=== PATIENT | female | born 1950 | race Hispanic/Latino ===

== ENCOUNTER 2017-11-19 09:23 | Observation (INO) | payer MEDICARE ==
[2017-11-19 10:40] LABS: Hematocrit 46.1 % (30.3-42.9); Hemoglobin 15.5 gm/dl (10.1-14.3)
[2017-11-19] MEDS ORDERED: DILAUDID IV PRN ×2 (10:54→15:39)
[2017-11-19] MEDS ORDERED: ZOFRAN IV PRN ×2 (10:54→18:13)
--- NOTE | 2017-11-19 10:55 | Anesthesia Day of Surgery ---
Anesthesia Day of Surgery - Day of Surgery Patient Examined: Yes Patient H&P Reviewed: Yes Patient is NPO: Yes
--- NOTE | 2017-11-19 10:57 | Anesthesia Consultation ---
Anesthesia Consult and Med Hx Date of service: 11/19/17 - Airway Anesthetic Teeth Evaluation: Good ROM Head & Neck: Adequate Mental/Hyoid Distance: Adequate Mallampati Class: Class II Intubation Access Assessment: Probably Good - Pulmonary Exam CTA: Yes - Cardiac Exam Cardiac Exam: RRR - Pre-Operative Health Status ASA Pre-Surgery Classification: ASA2 Proposed Anesthetic Plan: General - Pulmonary Hx Smoking: Yes (former smoker x 15 yrs, quit 20 yrs ago) Hx Asthma: No COPD: No Hx Sleep Apnea: No - Cardiovascular System Hx Hypertension: Yes (x 3 yrs) - Central Nervous System Hx Back Pain: Yes (arthritis in neck and back, adequate ROM in neck) Hx Psychiatric Problems: Yes (anxiety) - Gastrointestinal Hx Gastroesophageal Reflux Disease: Yes - Endocrine Hx Renal Disease: No Hx Thyroid Disease: Yes (not on meds) - Hematic Hx Anemia: No - Other Systems Hx Cancer: No Hx Obesity: Yes - Additional Comments Anesthesia Medical History Comments: Has had two surgeries on face with no complications. Denies PONV
[2017-11-19] MEDS ORDERED: VERSED IV NR (11:00)
[2017-11-19] MEDS ORDERED: NACL 0.9% 1000 ML 1,000 ML IV SCH (11:00)
[2017-11-19] MEDS ORDERED: ANCEF/STERILE WATER 2 GM/20 ML 2 GM/20 ML SYRINGE IV NR (11:00)
[2017-11-19] MEDS ORDERED: PEPCID PO NR (11:00)
[2017-11-19 11:19] LABS: BUN/Creatinine Ratio 20; Blood Urea Nitrogen 14 mg/dL (7-17); Calcium 9.5 mg/dL (8.4-10.2); Hemolysis Index 4
--- NOTE | 2017-11-19 12:19 | History and Physical Report ---
History of Present Illness Date of examination: 11/19/17 Date of admission: 11/19/2017 Chief complaint: Postmenopausal bleeding History of present illness: Patient is a 66-year-old female who presents with complaint of postmenopausal bleeding and pelvic pain intermittently for the past 6 months. An ultrasound revealed thickened endometrium as well as a 3 cm fibroid in the posterior portion of the uterus. 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 She has never had intervention have removed however she is wishing to have it removed today Past History Past Medical History: hypertension, hyperlipidemia Social history: , lives with family Medications and Allergies Allergies Allergy/AdvReac Type Severity Reaction Status Date / Time codeine Allergy severe N&V Verified 11/12/17 12:53 Home Medications Medication Instructions Recorded Confirmed Last Taken Type Atorvastatin Calcium [Atorvastatin 20 mg PO DAILY 11/19/17 11/19/17 11/18/17 History Calcium] Furosemide [Lasix TAB] 20 mg PO DAILY 11/19/17 11/19/17 11/18/17 History Lisinopril [Zestril TAB] 10 mg PO DAILY 11/19/17 11/19/17 11/19/17 History Potassium Chloride [Potassium 10 mcg PO DAILY 11/19/17 11/19/17 11/18/17 History Chloride] traMADol [Ultram 50 MG tab] 50 mg PO DAILY 11/19/17 11/19/17 11/17/17 History Active Meds: Active Medications Famotidine (Pepcid) 20 mg PO PREOP NR Stop: 11/19/17 13:00 Last Admin: 11/19/17 11:20 Dose: 20 mg Hydromorphone HCl (Dilaudid) 0.5 mg IV Q10MIN PRN PRN Reason: Pain , Severe (7-10) Stop: 11/19/17 13:00 Cefazolin Sodium (Ancef/Sterile Water 2 Gm/20 Ml) 2 gm in 20 mls @ 80 mls/hr IV PREOP NR PRN Reason: Protocol Stop: 11/19/17 13:00 Sodium Chloride (Nacl 0.9% 1000 Ml) 1,000 mls @ 75 mls/hr IV DIRECT KAYA Last Admin: 11/19/17 11:25 Dose: 75 mls/hr Midazolam HCl (Versed) 1 mg IV PREOP NR Stop: 11/19/17 23:59 Last Admin: 11/19/17 11:35 Dose: 1 mg Review of Systems All systems: negative - Constitutional fatigue - Genitourinary Genitourinary: pelvic pain, abnormal vaginal bleeding, vaginal dryness Menstruation: postmenopausal Exam Vital Signs Temp Pulse Resp BP Pulse Ox 97.6 F 66 18 144/65 97 11/19/17 10:25 11/19/17 10:25 11/19/17 10:25 11/19/17 10:25 11/19/17 10:25 - General physical appearance Positive: well developed, well nourished, no distress - Eyes Positive: PERRL, normal occular movement - ENT Positive: normal pinna, normal nares, normal mucosa, no hearing loss, no congestion - Neck Positive: no masses, no bruits, trachea midline, no venous distension - Respiratory Positive: normal expansion, normal respiratory effort, clear to auscultation - Cardiovascular Rhythm: regular Heart Sounds: Present: S1 & S2. Absent: rub, click - Extremities Extremities: no ischemia, pulses symmetrical, No edema Extremity abnormal: deformity - Breasts Breasts: deferred - Abdomen Abdomen: Present: soft, bowel sounds normal - Genitourinary Female Genitourinary: other (enlarged uterus) Results - Labs 11/19/17 10:25 11/19/17 10:25 Abnormal lab results 11/19/17 11/19/17 Range/Units 10:25 10:25 Hgb 15.5 H (10.1-14.3) gm/dl Hct 46.1 H (30.3-42.9) % Glucose 107 H (65-100) mg/dL Diabetes panel 11/19/17 11/19/17 Range/Units 10:25 10:25 Sodium 143 (137-145) mmol/L Potassium 4.4 4.4 (3.6-5.0) mmol/L Chloride 103.6 (98-107) mmol/L Carbon Dioxide 24 (22-30) mmol/L BUN 14 (7-17) mg/dL Creatinine 0.7 (0.7-1.2) mg/dL Glucose 107 H (65-100) mg/dL Calcium 9.5 (8.4-10.2) mg/dL Calcium panel 11/19/17 Range/Units 10:25 Calcium 9.5 (8.4-10.2) mg/dL Pituitary panel 11/19/17 11/19/17 Range/Units 10:25 10:25 Sodium 143 (137-145) mmol/L Potassium 4.4 4.4 (3.6-5.0) mmol/L Chloride 103.6 (98-107) mmol/L Carbon Dioxide 24 (22-30) mmol/L BUN 14 (7-17) mg/dL Creatinine 0.7 (0.7-1.2) mg/dL Glucose 107 H (65-100) mg/dL Calcium 9.5 (8.4-10.2) mg/dL Adrenal panel 11/19/17 11/19/17 Range/Units 10:25 10:25 Sodium 143 (137-145) mmol/L Potassium 4.4 4.4 (3.6-5.0) mmol/L Chloride 103.6 (98-107) mmol/L Carbon Dioxide 24 (22-30) mmol/L BUN 14 (7-17) mg/dL Creatinine 0.7 (0.7-1.2) mg/dL Glucose 107 H (65-100) mg/dL Calcium 9.5 (8.4-10.2) mg/dL Assessment and Plan Patient here for definitive therapy for pmb and fibroids. Patient is requesting to have her ovaries remain, however I explained to patient that if there are any obvious abnormalities, I would remove then due to age and increased risk for other issues. Patient understands. Consents signed and placed on chart.
[2017-11-19] MEDS ORDERED: DIPRIVAN 10 MG/ML IV ONE (12:32)
[2017-11-19] MEDS ORDERED: DILAUDID ONE (12:32)
[2017-11-19] MEDS ORDERED: XYLOCAINE MPF 2% ONE (12:33)
[2017-11-19] MEDS ORDERED: ZEMURON IV ONE ×2 (12:34→14:30)
[2017-11-19] MEDS ORDERED: NACL 0.9% IR ONE ×2 (12:42)
[2017-11-19] MEDS ORDERED: MARCAINE 0.25% INFILTRATI ONE ×2 (12:42→12:47)
[2017-11-19] MEDS ORDERED: METHYLENE BLUE ONE (12:48)
[2017-11-19] MEDS ORDERED: LACTATED RINGERS 1,000 ML ONE (13:59)
[2017-11-19] MEDS ORDERED: NEOSTIGMINE ONE (15:14)
[2017-11-19] MEDS ORDERED: TORADOL ONE (15:15)
[2017-11-19] MEDS ORDERED: ROBINUL ONE (15:15)
[2017-11-19] MEDS ORDERED: ZOFRAN ONE (15:15)
--- NOTE | 2017-11-19 15:40 | Post Anesthesia Evaluation ---
- Post Anesthesia Evaluation Patient Participated: Yes Airway Patent: Yes Stable Respiratory Function: Yes Nausea/Vomiting: No Temp > 96.8F: Yes Pain Manageable: Yes Adequeate Hydration: Yes Anesthesia Complications: No
--- NOTE | 2017-11-19 17:06 | Post Operative Note ---
Pre-op diagnosis: Post menopausal bleeding, fibroids Post-op diagnosis: same Findings: enlarged uterus and enlarged multicystic ovaries Procedure: LAVH with BSO Anesthesia: CLAUDY Surgeon: KEVIN COOK Wood Machinist: ADDISON OLIVAS Estimated blood loss: other (200) Pathology: list (uterus tubes and ovaries) Specimen disposition: to lab Condition: stable Disposition: PACU
[2017-11-19] MEDS ORDERED: TYLENOL PO PRN (18:13)
[2017-11-19] MEDS ORDERED: MORPHINE IV PRN (18:13)
[2017-11-19] MEDS ORDERED: PERCOCET 5/325 PO PRN (18:13)
[2017-11-19] MEDS: TORADOL IV SCH (19:07)
[2017-11-19] MEDS: D5LR 1,000 ML IV SCH (19:37)
[2017-11-19] MEDS: COLACE PO SCH (22:35)
[2017-11-20] MEDS: TORADOL IV SCH ×2 (01:51→08:13)
[2017-11-20] MEDS: D5LR 1,000 ML IV SCH (04:23)
[2017-11-20 07:47] LABS: Hematocrit 38.9 % (30.3-42.9); Hemoglobin 12.9 gm/dl (10.1-14.3)
--- NOTE | 2017-11-20 08:10 | Progress Note ---
Assessment and Plan Patient is POD 1 s/p LAVH. Doing well. Patient passing flatus. Patient would like to be discharged on tomorrow Subjective - Subjective Date of service: 11/20/17 Interval history: Patient is a 66-year-old female who presents with complaint of postmenopausal bleeding and pelvic pain intermittently for the past 6 months. An ultrasound revealed thickened endometrium as well as a 3 cm fibroid in the posterior portion of the uterus. 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 She has never had intervention have removed however she is wishing to have it removed today Patient reports: appetite normal, voiding normally, pain well controlled, flatus , ambulating normally Objective - Vital Signs Latest vital signs: Vital Signs Temp Pulse Resp BP BP Pulse Ox 11/20/17 04:30 98.6 F 77 16 132/78 11/20/17 01:51 18 11/19/17 23:30 98.6 F 84 16 144/72 11/19/17 19:45 98.2 F 83 18 142/76 11/19/17 19:37 98 11/19/17 18:00 97.8 F 82 18 130/71 99 11/19/17 17:00 79 13 130/69 98 11/19/17 16:30 73 15 132/66 97 11/19/17 16:15 78 14 126/67 96 11/19/17 16:00 80 14 131/72 93 11/19/17 15:50 76 12 140/73 95 11/19/17 15:45 81 14 142/71 95 11/19/17 15:40 82 11 L 143/70 99 11/19/17 15:35 97.2 F L 88 16 130/72 97 11/19/17 10:25 97.6 F 66 18 144/65 97 Intake and Output 11/19/17 11/20/17 11/20/17 22:59 06:59 14:59 Intake Total 300 1000 Output Total 2600 Balance 300 -1600 Intake: IV 300 1000 D5lr 1,000 ml @ 125 mls/ 1000 hr IV DIRECT KAYA Rx#: [id number] Output: Urine 2600 Indwelling Catheter 2600 Other: Total, Output Amount 900 Voiding Method Indwelling Catheter - Exam Breasts: Present: deferred Cardiovascular: Present: Regular rate, Normal S1, Normal S2 Lungs: Present: Clear to auscultation, Normal air movement Abdomen: Present: normal appearance, soft, normal bowel sounds Extremities: Present: normal Deep Tendon Reflex Grade: Normal +2 Incision: Present: normal, dry, intact - Labs Labs: Abnormal lab results 11/19/17 11/19/17 Range/Units 10:25 10:25 Hgb 15.5 H (10.1-14.3) gm/dl Hct 46.1 H (30.3-42.9) % Glucose 107 H (65-100) mg/dL
--- NOTE | 2017-11-20 08:19 | Discharge Summary ---
Providers - Providers Date of Admission: 11/19/17 16:59 Date of discharge: 11/20/17 Attending physician: KEVIN COOK Primary care physician: ADINA MERRILL Hospitalization Reason for admission: other (post menopausal bleeding) Delivery: other (LAVH) Procedure details: see op report Incision: normal, dry, intact Other procedures: none Discharge diagnosis: other (Post menopausal bleeding) Hospital course: Unremarkable Condition at discharge: Good Disposition: DC-01 TO HOME OR SELFCARE Plan - Discharge Medications Prescriptions: Docusate Sodium [Colace] 100 mg PO BID PRN #60 capsule PRN Reason: Constipation Ibuprofen [Motrin] 800 mg PO Q8HR PRN #40 tablet PRN Reason: Pain Oxycodone HCl/Acetaminophen [Percocet 7.5/325 mg] 1 each PO Q6HR PRN #40 tablet PRN Reason: Pain - Provider Discharge Summary Activity: routine, no sex for 6 weeks, no heavy lifting 4 weeks, no strenuous exercise Diet: routine Instructions: routine Additional instructions: [] Smoking cessation referral if applicable(refer to patient education folder for contact #) [] Refer to [facility]'s [facility] Booklet Call your doctor immediately for: * Fever > 100.5 * Heavy vaginal bleeding ( >1 pad per hour) * Severe persistent headache * Shortness of breath * Reddened, hot, painful area to leg or breast * Drainage or odor from incision. * Keep incision clean and dry at all times and follow doctor's instructions regarding bathing/showering - Follow up plan Follow up: KEVIN COOK MD [Staff Physician] - 14 Days
[2017-11-20] MEDS: COLACE PO SCH (10:45)
[2017-11-20 13:03] VITALS: BP 134/65
--- NOTE | 2017-12-08 12:28 | Operative Report ---
PREOPERATIVE DIAGNOSES: 1. Postmenopausal bleeding. 2. Fibroids. 3. Large lipoma of the left thigh. POSTOPERATIVE DIAGNOSES: 1. Postmenopausal bleeding. 2. Fibroids. 3. Large lipoma of the left thigh. PROCEDURE: LAVH with BSO and removal of excision of posterior thigh lipoma. SURGEON: Dominique Jolly MD WELLNESS EDUCATOR: Delaney Chao MD ESTIMATED BLOOD LOSS: 200. IV FLUIDS: 1100. URINE OUTPUT: 250, clear at the end of the procedure. SPECIMENS: Uterus, tubes, and ovaries, as well as posterior left thigh lipoma sent to the lab. FINDINGS: Enlarged fibroid uterus with large multicystic ovaries in a postmenopausal woman and 5 cm posterior left thigh mass consistent with a fibroma. COMPLICATIONS: None. DESCRIPTION OF PROCEDURE: The patient taken to the OR with IV running in place. She was properly identified as herself. She was then given general anesthesia without difficulty. She was placed in dorsal lithotomy position and prepped and draped in normal sterile fashion. Attention was first turned to the patient's vagina where a speculum was placed into the vagina. The cervix was visualized and grasped with a single-tooth tenaculum. Cervix was then gently sounded to approximately 8 cm in length, following which the VCare manipulator was placed into the uterus. The cup was made flush with the vaginal cuff and the balloon was inflated. The speculum was then removed. Following this, a Manuel catheter was inserted. At this point, the surgeon's gloves were changed. Attention was turned to the patient's abdomen. An incision was made in the umbilicus and through this incision, a 5-mm mm trocar was placed. Laparoscope confirmed intra-abdominal placement. The abdomen was insufflated with CO2 gas up to approximately 25 mmHg. Under direct visualization, additional trocars were placed in the right and left lower quadrant. Through these, each 5 mm trocars were also placed. With the uterus in the anteverted position, attention was first turned to the patient's ovaries. The right ovary appeared to have multiple cysts on it and appeared to be somewhat irregular. For this reason, decision was made to remove the right ovary. The left ovary was likewise. Incision was then made to remove the left ovary as well, but in any case, the round ligament was incised on the right, broad ligament was traveled under and the IP was then identified, cauterized, and transected. The broad ligament was dissected out. Attention was then turned to the bladder flap. The bladder flap was taken midway across the pelvis to the midline and at this point, attention was turned to the patient's left side. On the left side, the round ligament was identified, cauterized, and transected as was the IP ligament and the broad ligament as well. The bladder flap was then completed. The bladder was then placed down, pushed down and out of the way. Following this, the uterine arteries were identified. They were skeletonized. They were grasped, cauterized, and transected in successive santana so there was blanching of the uterus. Once the uterine arteries were transected, the colpotomy incision was initiated, at which point we started anteriorly and made incisions with the J hook until the green cup of the VCare manipulator was identified in a circumferential pattern. This was done completely around the circumference of the cervix, following which the attention was turned from the abdomen to the vagina once again. The speculum was inserted into the vagina and the manipulator was grasped with a tenaculum. The manipulator and the specimen removed vaginally in 1 complete piece. Of note, the right ovary had been disconnected at some point during the procedure. It was then found laparoscopically and delivered through the vagina as well. Once everything was delivered through the vagina, the vaginal cuff was closed in a running locked fashion using a 0 Vicryl for excellent hemostasis. At this point, a final look was taken into the patient's abdomen and pelvis. It was copiously irrigated with the Nezhat suction device and there was excellent hemostasis noted. At this point, all instruments removed from the patient's abdomen. The incisions were injected with 0.25% Marcaine and the skin was closed with 4-0 Monocryl. There was excellent hemostasis at the end of the procedure. At this point, the procedure was ended. The sponge, needle, and instrument counts were correct x 2. The patient tolerated the procedure well and was taken to recovery in stable condition. JOB# [id number] ZACH/JARED
== END 2017-11-20 16:35 | disposition home or self-care (01) ==
LOC: OR 09:23 → OB 16:59
PROVIDERS: ADMIT Obstetrics & Gynecology; ATTEND Obstetrics & Gynecology
DX: N95.0 Postmenopausal bleeding (principal); D17.39 Benign lipomatous neoplasm of skin and subcutaneous tissue of other sites; D25.9 Leiomyoma of uterus, unspecified; I10 Essential (primary) hypertension; E78.5 Hyperlipidemia, unspecified
CPT/HCPCS: 27337; 36415; 58550; 80048; 84132; 85014; 85018; 86850; 86900; 86901; 88305; 88307; 88341; 88342; 96374; 96375; 96376; A4217; G0378; J0690; J1170; J1885; J2250; J2405; J2704; J2710; J7030; J7120; J7121; Q9968; 88304; J2270